=== PATIENT | female | born 1960 | race Caucasian/White ===

== ENCOUNTER 2017-10-18 10:32 | Emergency (ER) | payer BC ==
[~2017-10-18] VITALS: Ht 162.5 cm; Wt 72.6 kg
[~2017-10-18 10:32] MED LIST: AMBIEN5 MG PO; AMINOPHYLLIN200 MG PO; ASPIRIN CHILDRE81 MG PO; DILAUDID2 MG PO; FLONASE ALLERG9.9 ML NS; GYNODIOL2 MG PO; HYDROCODONE BIT1 T11 PO; LEVOFLOXACIN500 MG PO; PERCOCET 325 MG1 TA2 PO; ZITHROMAX Z PA250 MG PO
[2017-10-18 10:33] VITALS: BP 133/76
== END 2017-10-18 12:40 | disposition home or self-care (01) ==
LOC: ED 10:32
DX: S93.602A Unspecified sprain of left foot, initial encounter (principal); R03.0 Elevated blood-pressure reading, without diagnosis of hypertension; Z98.890 Other specified postprocedural states; Z98.51 Tubal ligation status; Z90.710 Acquired absence of both cervix and uterus; Z79.82 Long term (current) use of aspirin; Z79.899 Other long term (current) drug therapy; Z88.8 Allergy status to other drugs, medicaments and biological substances; Z88.6 Allergy status to analgesic agent; Z88.1 Allergy status to other antibiotic agents; Z88.2 Allergy status to sulfonamides; X50.1XXA Overexertion from prolonged static or awkward postures, initial encounter; Y93.89 Activity, other specified; Y92.69 Other specified industrial and construction area as the place of occurrence of the external cause; Y99.9 Unspecified external cause status

== ENCOUNTER 2018-05-22 19:43 | Emergency (ER) | payer BC ==
[~2018-05-22] VITALS: Ht 162.5 cm; Wt 68.0 kg
[2018-05-22 19:47] VITALS: BP 148/85
[2018-05-22] MEDS ORDERED: PERCOCET 5-3251 EACH PO (20:09)
[2018-05-22] MEDS ORDERED: CEPHALEXIN500 M1 PO (20:09)
== END 2018-05-22 20:30 | disposition home or self-care (01) ==
LOC: ED 19:43
DX: H66.91 Otitis media, unspecified, right ear (principal); Z88.1 Allergy status to other antibiotic agents; Z88.2 Allergy status to sulfonamides; Z88.8 Allergy status to other drugs, medicaments and biological substances; Z88.6 Allergy status to analgesic agent; Z79.82 Long term (current) use of aspirin

== ENCOUNTER 2024-09-06 17:20 | Emergency (ER) | payer BC ==
[~2024-09-06] VITALS: Ht 160 cm; Wt 77.1 kg
[~2024-09-06 17:20] MED LIST changes: +CEPHALEXIN500 M1 PO; +PERCOCET 5-3251 EACH PO
[2024-09-06 17:47] VITALS: BP 135/74
[2024-09-06] MEDS ORDERED: ZITHROMAX250 MG PO (18:07)
[2024-09-06] MEDS ORDERED: AZITHROMYCIN 250 MG TAB PO ONE (18:10)
== END 2024-09-06 18:42 | disposition home or self-care (01) ==
LOC: ED 17:20
DX: S00.421A Blister (nonthermal) of right ear, initial encounter (principal); H66.93 Otitis media, unspecified, bilateral; J02.0 Streptococcal pharyngitis; Z88.8 Allergy status to other drugs, medicaments and biological substances; Z88.2 Allergy status to sulfonamides; Z91.048 Other nonmedicinal substance allergy status; Z79.899 Other long term (current) drug therapy; Z79.82 Long term (current) use of aspirin; Z98.890 Other specified postprocedural states; Z90.710 Acquired absence of both cervix and uterus; X58.XXXA Exposure to other specified factors, initial encounter; Y93.89 Activity, other specified; Y92.89 Other specified places as the place of occurrence of the external cause; Y99.8 Other external cause status

== ENCOUNTER 2024-11-14 21:38 | Emergency (ER) | payer MEDICARE, BC ==
[~2024-11-14] VITALS: Ht 160 cm; Wt 79.4 kg
[~2024-11-14 21:38] MED LIST changes: +ZITHROMAX250 MG PO
[2024-11-14 22:03] VITALS: BP 127/88
[2024-11-14] MEDS ORDERED: CLINDAMYCIN HCL 300 MG CAPSULE PO ONE (22:20)
[2024-11-14] MEDS ORDERED: CLINDAMYCIN HC300 MG PO (22:42)
== END 2024-11-14 22:56 | disposition home or self-care (01) ==
LOC: ED 21:38
DX: I80.9 Phlebitis and thrombophlebitis of unspecified site (principal); L03.116 Cellulitis of left lower limb; Z88.8 Allergy status to other drugs, medicaments and biological substances; Z88.2 Allergy status to sulfonamides; Z88.1 Allergy status to other antibiotic agents; Z79.899 Other long term (current) drug therapy; Z91.048 Other nonmedicinal substance allergy status; Z98.890 Other specified postprocedural states; Z90.710 Acquired absence of both cervix and uterus